=== PATIENT | female | born 1990 | race Caucasian/White ===

== ENCOUNTER 2022-09-23 00:27 | Day surgery (SDC) | payer OTHER, SELFPAY ==
[2022-09-10 09:45] VITALS: BMI 49.4
--- NOTE | 2022-09-10 09:56 | SUR.PREOP ---
Report to the Outpatient Waiting Room, entrance under the green pavilion located off [facility], at time _0600 on date _09/23/22 . Planned Procedure Time: _729 . Time changes happen often and if your time is changed the preop area will call you the afternoon before. - You and your visitor will be asked to self-screen and do not enter if you have any COVID symptoms. - Only one visitor is requested with a max of two and NO children visitors are allowed at this time. - The patient visitor may be requested to leave or wait in car when not with patient due to distancing restrictions. - A mask is optional within the hospital at this time. Patients may have clear liquids (water, carbonated beverages, clear teas, apple juice) until 3 hours prior to surgery with a maximum of 20 ounces. - No food from midnight until time of surgery - Infants may have breast milk until 4 hours before surgery, infant formula 6 hours prior to surgery. - Children will be allowed to drink immediately following surgery. If applicable, please bring a bottle or sippy cup to assist with drinking. Juice, water, soda, and popsicles are readily available. For infants on formula, please bring formula the day of surgery. Pacifiers are allowed. Take the following medications with a SIP of water the morning of surgery: __n/a DO NOT STOP ANY OF YOUR OTHER PRESCRIPTION MEDICATIONS PRIOR TO SURGERY ?EXCEPT THE FOLLOWING Medications to discontinue per physician n/a Date to take last dose__n/a Please no make-up, nail spanish, hairspray, perfume, deodorant, or body powder the day of surgery. No jewelry (including any body piercings) or valuables the day of surgery, leave them at home. Please take a shower or bath the night before, or the morning of, surgery with an antibacterial soap. Wear comfortable, loose fitting clothing. Children are encouraged to wear pajamas. - Jewelry must be removed prior to entering the operating room. Rings and piercings that are not removed may be cut off. - The hospital will not accept responsibility for valuables. - Please leave all valuables, including medications, at home the day of surgery. If you are going home after surgery, a licensed corrugated fastener driver must drive you home. - NO public transportation without another adult if you receive anesthesia. - We recommend that an adult stay with you for 24 hours following discharge. - We also recommend that you do not drive, make important decision, drink alcoholic beverages, or take any drugs that were not prescribed by your health care provider for at least 24 hours after your discharge time. For Pediatric surgeries, we recommend two adults accompany the child home. Follow any additional instructions given to you from your surgeon. If you or anyone in your household have experienced Covid symptoms in the past week, please notify your surgeon or the nurse liaison at the phone number below for possible testing. Telephone instructions given to _leigh fountain and asked if any additional questions and then verbalized understanding. Patient advised to call surgeon office or pre surgery nurse liaison [phone] if any additional questions.
[2022-09-23] VITALS (9 sets, daily range): BP systolic 120–154; BP diastolic 65–102; PULSE 52–81; RESP 10–20; TEMP 36.1–36.7; O2SAT 93–99
[2022-09-23] MEDS: LACTATED RINGERS 1,000 ML 30 ML IV CONT ×2 (06:40→08:45)
[2022-09-23] MEDS: GABAPENTIN 300 MG CAPSULE PO (06:40)
[2022-09-23] MEDS: ACETAMINOPHEN 500 MG TABLET 1000 MG PO (06:40)
--- NOTE | 2022-09-23 07:06 | P.PNAN_ITS ---
Anes - Initial Pre Proc Eval Procedure: Operation Date: 09/23/22 07:30 Proposed Procedures p Diagnostic Laparoscopy Bilateral Salpingectomy, - Elaine Jenkins DO s Hysteroscopy with Dilation and Curettage, Insertion of Mirena Intrauterine Device - Elaine Jenkins DO Date/Time: 09/23/22 07:06 Surgeon: Elaine Jenkins DO Pre Op Diagnosis: Desires Sterility,Abnormal Uterine Bleeding Patient Data Age: 32 Gender: F Height: 1.63 m Weight: 128.1 kg Last Vital Signs Temp 97 F L 09/23/22 06:42 Pulse 57 L 09/23/22 06:42 Resp 14 09/23/22 06:42 BP 154/89 H 09/23/22 06:42 Pulse Ox 99 09/23/22 06:42 O2 Del Method Room Air 09/23/22 06:42 Allergies Allergy/AdvReac Type Severity Reaction Status Date / Time No Known Allergies Allergy Verified 09/23/22 06:47 Home Medications Medication Instructions Recorded Confirmed Type albuterol sulfate 90 mcg/actuation 1 puff inhalation QID PRN 09/10/22 09/10/22 History aerosol inhaler Shortness Of Breath Or Wheezing dexmethylphenidate 20 mg 20 mg PO DAILY 09/10/22 09/10/22 History capsule,extended release [id number] (Focalin XR) fluvoxamine 100 mg tablet 100 mg PO HS 09/10/22 09/10/22 History Patient hx anesthesia problems: none Family hx anesthesia problems: none Results Review: All pre-operative results and documents have been reviewed as part of the pre- operative evaluation. [facility] Social History Social History Smoking status: Current every day smoker Tobacco type: cigarettes Additional smoking assessment comments: 1/2 ppd cigarrettes x 10 yers Living arrangements: with family Spiritual care concerns: No Anes - Eval Final PreProcedure Day of Procedure 09/23/22 07:06 Patient weight: morbidly obese Heart: regular rate and rhythm Lungs: clear to auscultation Airway: Mallampati scale class II Neurological: alert and oriented Last oral intake: >/= 8 hours ASA classification: III Emergent: no Anesthetic plan: proceed Anesthesia type and monitoring: general ETT and standard monitoring Results Review: All pre-operative results and documents have been reviewed as part of the pre- operative evaluation. Informed Consent: The patient's anesthetic plan and its attendant risks and benefits were discussed with the patient/family/POA. Questions were solicited and answers provided to the satisfaction of the patient/family/POA.
--- NOTE | 2022-09-23 07:12 | PM.IMHP ---
H&P: HPI History of Present Illness Date/Time: 09/23/22 07:12 Chief Complaint: I'm here for my surgery Narrative: Leonora presents for diag lap, bilateral salpingectomy, hysteroscopy, D&C and Mirena placement for sterilization and control of heavy periods. Review of Systems Review of Systems: All systems reviewed & are unremarkable except as noted in HPI and below PMFSH Social History Social History Smoking status: Current every day smoker Tobacco type: cigarettes Additional smoking assessment comments: 1/2 ppd cigarrettes x 10 yers Living arrangements: with family Spiritual care concerns: No Meds Home Medications and Allergies Home Medications Medication Instructions Recorded Confirmed Type albuterol sulfate 90 mcg/actuation 1 puff inhalation QID PRN 09/10/22 09/10/22 History aerosol inhaler Shortness Of Breath Or Wheezing dexmethylphenidate 20 mg 20 mg PO DAILY 09/10/22 09/10/22 History capsule,extended release [id number] (Focalin XR) fluvoxamine 100 mg tablet 100 mg PO HS 09/10/22 09/10/22 History Allergies Allergy/AdvReac Type Severity Reaction Status Date / Time No Known Allergies Allergy Verified 09/23/22 06:47 Vital Signs Vital Signs - 24 hr 09/23/22 06:42 Temperature 36.1 C L Pulse Rate 57 L Respiratory Rate 14 Blood Pressure 154/89 H Pulse Oximetry 99 Oxygen Delivery Room Air Exam Const: General: comfortable and no acute distress Eyes: General: appearance normal, both eyes and all related structures Sclera: sclerae normal Resp: Effort & Inspection: normal respiratory effort Auscultation: clear to auscultation bilaterally Cardio: Rate: regular rate Rhythm: regular rhythm GI: GI Palp: Yes Soft to palpation Auscultation: normal bowel sounds Skin: General skin exam: normal color and no rashes or lesions noted Wounds: no wounds Neuro: General: gait normal Assessment and Plan Assessment and plan (1) Sterilization: Code(s): Z30.2 - Encounter for sterilization Status: Acute (2) Heavy menstrual bleeding: Code(s): N92.0 - Excessive and frequent menstruation with regular cycle Status: Acute Plan Diagnostic laparoscopy, bilateral salpingectomy, hysteroscopy, D&C and Mirena placement Quality If No VTE Prophylaxis Answer both mechanical and pharmacologic: Reason no pharmacologic proph: low risk/not indicated
--- NOTE | 2022-09-23 07:15 | WPDHPUPDATE1 ---
History and Physical Update Update Date/Time: 09/23/22 07:15 History and Physical has been reviewed, including an updated exam of the patient. There are NO changes in the patient's condition. Risks, benefits, and alternatives have been discussed and questions answered. Patient agrees to proceed with procedure.
--- NOTE | 2022-09-23 08:16 | SUR.OPER ---
keeley garcia [id number] PER SURGEON OFFICE
[2022-09-23] MEDS: BUPivacaine HCL 0.25% PF 30 ML VIAL INFILTRATE (08:32)
--- NOTE | 2022-09-23 08:48 | W.PM.PROC2 ---
Procedure Note - Detailed Date of Procedure 09/23/22 Pre-op Diagnosis Desires Sterility, Abnormal Uterine Bleeding Post-op Diagnosis Same Procedure Performed Diagnostic laparoscopy, bilateral salpingectomy, lysis of adhesions. Hysteroscopy, D&C, Mirena placement. Surgeon Elaine Jenkins DO Reconciliation Manager Jo Anesthesia General Indications Desires permanent sterilization, abnormal uterine bleeding Findings Normal appearing vulva and vaginal canal. Small cervix. Uterus anteverted and sounded to 9cm. Internally, the bowels and liver were unremarkable. There was significant adhesive disease of the omentum to the anterior abdominal wall. No bowel was involved. There were significant adhesions of the bladder flap. The posterior cul-de-sac was completely clear. The tubes were adhered to the pelvic sidewalls with filmy thin adhesions. SHOULD THE PATIENT NEED A HYSTERECTOMY I WOULD STRONGLY ENCOURAGE A ROBOTIC APPROACH DUE TO THE ADHESIONS IN HER PELVIS. Description of Procedure The patient was taken to the operating room where she was prepped and draped in the normal sterile fashion in a dorsal lithotomy position under general anesthesia. A time-out was performed. No preoperative antibiotics were indicated. A Barney catheter was placed. Speculum was used to visualize the cervix and the anterior lip was grasped with an Allis clamp. The cervix was sequentially dilated up to accommodate a Kroner uterine manipulator. The speculum was removed, gloves were changed and attention was then turned to the abdomen. The skin above the umbilicus was grasped with 2 penetrating towel clamps and a small incision was made after the injection of local. A Veress needle was introduced and the saline water drop test was performed to confirm intraperitoneal placement. The CO2 insufflation was started and the abdomen was brought to a filling pressure of 15 mmHg. The Veress was removed and a 5 mm Optiview trocar was introduced under direct visualization. Survey of the abdomen revealed no evidence of bowel or vascular injury upon initial entry. There were significant omental adhesions in the mid and lower pelvis likely secondary to previous surgery. There was no bowel involvement. the omental adhesions prevented visualization of the pelvis with the right and left lower quadrants were clear. Additional port sites were identified, injected and incised. 5 mm trocars were introduced under direct visualization. The patient was placed in steep Trendelenburg position. Adhesiolysis was performed using the LigaSure. Once the pelvis was visualized it was noted that the bladder flap is the tubes were moderately scarred to the pelvic sidewalls. The posterior cul-de-sac was completely clear. The right tube was then elevated with a grasper it was cauterized and transected off using LigaSure. It was then passed off through the neurosurgical physician assistant port. In an identical fashion, the left salpingectomy was performed and this specimen was passed off. Pedicles were inspected and found to be hemostatic survey of the abdomen revealed no evidence of bleeding from the adhesiolysis. CO2 insufflation was stopped the instruments were removed and so were the trocars. the abdominal incisions were reapproximated with 4-0 Monocryl in a subcuticular fashion and covered with 2 by 2s and Tegaderms. Attention was then turned to the hysteroscopy portion of the procedure. The uterine manipulator was removed and a speculum was used to visualize the cervix. The anterior lip was grasped with a single-tooth tenaculum. The cervix was then sequentially dilated up to accommodate the hysteroscope. The scope was introduced and a survey of the endometrium revealed no abnormalities. A normal-appearing endometrial cavity in shape and contour. The scope was then removed. A thorough curettage of the entire cavity was performed the specimen was handed off for pathology. The uterus had previously been sounded to 9
[2022-09-23] MEDS: oxyCODONE HCL (*CRX) 5 MG TAB IR PO (10:05)
== END 2022-09-23 11:04 | disposition home or self-care (01) ==
PROVIDERS: Visit Provider Obstetrics & Gynecology Gynecologic Oncology
PROC: (CPT 49320; principal; 2022-09-23 07:30)
PROC: 0U5B8ZZ Destruction of Endometrium, Via Natural or Artificial Opening Endoscopic (ICD-10-PCS; CPT 58563; 2022-09-23 07:30)
DX: Z30.2 Encounter for sterilization (principal); N92.0 Excessive and frequent menstruation with regular cycle; N73.6 Female pelvic peritoneal adhesions (postinfective); Z79.51 Long term (current) use of inhaled steroids; F17.210 Nicotine dependence, cigarettes, uncomplicated; E66.01 Morbid (severe) obesity due to excess calories; Z68.42 Body mass index [BMI] 45.0-49.9, adult
CPT/HCPCS: 58661; 58558; 58300; 88302; 88305; A9270; J1100; J2250; J2405; J2704; J2710; J3010; J7030; J7120